=== PATIENT | male | born 1965 | race Caucasian/White ===

== ENCOUNTER 2020-09-13 15:53 | Emergency (ER) | payer OTHER ==
--- NOTE | 2020-09-13 15:59 | ED Chest Pain ---
General Stated Complaint: SOB | CHEST PAIN | HEADACHE | LEFT SIDE NUMBNESS History of Present Illness Date Seen by Provider: Sep 13, 2020 Time Seen by Provider: 15:59 Initial Comments 55-year-old male presents with headache, left-sided numbness especially in his arm and hand. Bilateral lower extremity weakness, some chest pain substernal with shortness of breath. Patient reports symptoms of been going on and off for about a week. Patient main complaint is that the chest pain was a little bit worse today than it had been. Reports that he was just driving when it happened. He feels little bit short of breath. Patient states that right now he mainly has a little bit of tingling in his left arm mainly in his hand and some very minimal substernal chest pain. Patient does not recall anything that makes it better or worse. Patient denies any fevers or chills. He has no posterior calf pain. 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 Allergies and Home Medications Allergies Coded Allergies: No Known Drug Allergies (Unverified , 09/13/20) Patient Home Medication List Home Medication List Reviewed: Yes Review of Systems Review of Systems Constitutional: No chills, No fever EENTM: No Symptoms Reported Respiratory: Denies Cough; Shortness of Air Cardiovascular: Chest Pain Gastrointestinal: Denies Abdominal Pain, Denies Nausea, Denies Vomiting Musculoskeletal: see HPI Skin: no symptoms reported Psychiatric/Neurological: See HPI, Headache, Numbness, Weakness Endocrine: No Symptoms Reported Past [id number] Hx Past Med/Social Hx: Reviewed Nursing Past Med/Soc Hx Physical Exam Vital Signs Vital Signs - First Documented 09/13/20 16:14 Temp 36.9 Pulse 81 Resp 16 B/P (MAP) 166/101 (122) Pulse Ox 95 O2 Delivery Room Air Capillary Refill : Height, Weight, BMI Height: '" Weight: lbs. oz. kg; BMI Method: General Appearance: No Apparent Distress, WD/WN HEENT: PERRL/EOMI, Pharynx Normal Neck: Full Range of Motion, Non Tender, Supple Respiratory: Lungs Clear, Normal Breath Sounds Cardiovascular: Regular Rate, Rhythm Gastrointestinal: Non Tender, Soft Extremity: Normal Capillary Refill, Normal Inspection, Normal Range of Motion Neurologic/Psychiatric: Alert, Oriented x3; No Facial Droop, No Motor Weakness, No Sensory Deficit Skin: Normal Color, Warm/Dry Progress/Results/Core Measures Results/Orders Lab Results Laboratory Tests Test 09/13/20 16:03 Range/Units White Blood Count 8.4 4.3-11.0 10^3/uL Red Blood Count 4.68 4.35-5.85 10^6/uL Hemoglobin 14.3 13.3-17.7 G/DL Hematocrit 39 L 40-54 % Mean Corpuscular Volume 84 80-99 FL Mean Corpuscular Hemoglobin 31 25-34 PG Mean Corpuscular Hemoglobin Concent 36 32-36 G/DL Red Cell Distribution Width 12.6 10.0-14.5 % Platelet Count 318 130-400 10^3/uL Mean Platelet Volume 9.6 7.4-10.4 FL Immature Granulocyte % (Auto) 0 % Neutrophils (%) (Auto) 68 42-75 % Lymphocytes (%) (Auto) 23 12-44 % Monocytes (%) (Auto) 7 0-12 % Eosinophils (%) (Auto) 1 0-10 % Basophils (%) (Auto) 1 0-10 % Neutrophils # (Auto) 5.6 1.8-7.8 X 10^3 Lymphocytes # (Auto) 2.0 1.0-4.0 X 10^3 Monocytes # (Auto) 0.6 0.0-1.0 X 10^3 Eosinophils # (Auto) 0.1 0.0-0.3 10^3/uL Basophils # (Auto) 0.1 0.0-0.1 10^3/uL Immature Granulocyte # (Auto) 0.0 0.0-0.1 10^3/uL Prothrombin Time 12.8 12.2-14.7 SEC INR Comment 0.9 0.8-1.4 Activated Partial Thromboplast Time 28 24-35 SEC Sodium Level 134 L 135-145 MMOL/L Potassium Level 3.4 L 3.6-5.0 MMOL/L Chloride Level 97 L 98-107 MMOL/L Carbon Dioxide Level 23 21-32 MMOL/L Anion Gap 14 5-14 MMOL/L Blood Urea Nitrogen 12 7-18 MG/DL Creatinine 0.82 0.60-1.30 MG/DL Estimat Glomerular Filtration Rate > 60 BUN/Creatinine Ratio 15 Glucose Level 153 H 70-105 MG/DL Calcium Level 8.9 8.5-10.1 MG/DL Corrected Calcium 8.7 8.5-10.1 MG/DL Magnesium Level 1.7 1.6-2.4 MG/DL Total Bilirubin 0.4 0.1-1.0 MG/DL Aspartate Amino Transf (AST/SGOT) 25 5-34 U/L Alanine Aminotransferase (ALT/SGPT) 29 0-55 U/L Alkaline Phosphatase 97 40-136 U/L Myoglobin < 21.0 10.0-92.0 NG/ML Troponin I < 0.30 <0.30 NG/ML Total Protein 7.1 6.4-8.2 GM/DL Albumin 4.2 3.2-4.5 GM/DL My Orders Orders - KOCH,JOSÉ MIGUEL L DO Cbc With Automated Diff (09/13/20 16:00) Magnesium (09/13/20 16:00) Chest 1 View Ap/Pa Only (09/13/20 16:00) Ekg Tracing (09/13/20 16:00) Comprehensive Metabolic Panel (09/13/20 16:00) Myoglobin Serum (09/13/20 16:00) Protime With Inr (09/13/20 16:00) Partial Thromboplastin Time (09/13/20 16:00) Monitor-Rhythm Ecg Trace Only (09/13/20 16:00) Lipid Panel (09/14/20 06:00) Ed Iv/Invasive Line Start (09/13/20 16:00) Troponin I Fs (09/13/20 16:00) Ct Head Wo-R/O Stroke (09/13/20 16:00) Aspirin Tablet (Aspirin Tablet) (09/13/20 16:25) Ketorolac Injection (Toradol Injection) (09/13/20 16:25) Vital Signs/I&O 09/13/20 16:14 Temp 36.9 Pulse 81 Resp 16 B/P (MAP) 166/101 (122) Pulse Ox 95 O2 Delivery Room Air Progress Progress Note : Progress Note Patient with EKG that does not show any acute findings, ST changes. Negative troponin, negative labs. Negative chest x-ray, negative head CT. Patient's neuro exam was essentially negative, could potentially give an NIH score of 1 out for some mild left-sided weakness. Discussed with patient that his symptoms been going on at least 5 days. That he may have a viral syndrome versus another etiology. Patient was offered admission for chest pain rule out on further ev aluation but declined. Discussed with him that he should follow-up with his primary care provider in the next day to 2 days for further outpatient evaluation where they could consider a cardiology consult, possible outpatient MRI for his left arm paresthesia. Patient stable and discharged Initial ECG Impression Date: Sep 13, 2020 Initial ECG Impression Time: 11:58 Initial ECG Rate: 82 Initial ECG Rhythm: Normal Sinus Initial ECG Impression: Nonspecific Changes Comment nsr, hr 82, no acute changes. Diagnostic Imaging Diagonstic Imaging: CT Plain Films/CT/US/NM/MRI: head Comments Date of Exam:09/13/20 CT HEAD WO-R/O STROKE EXAMINATION: CT head without contrast. TECHNIQUE: Multiple contiguous axial images were obtained through the brain without the use of intravenous contrast. All CT scans use one or more of the following dose optimizing techniques: automated exposure control, MA and/or KvP adjustment based on patient size and exam type or iterative reconstruction. HISTORY: Left sided weakness. COMPARISON: None available. FINDINGS: The ventricles and sulci are normal. No abnormal attenuation of brain parenchyma is present. No acute intracranial hemorrhage or abnormal extra-axial fluid collection is present. No hyperdense vessel. The calvarium is intact. The mastoid air cells are clear. The visualized paranasal sinuses are clear. The orbits are normal. IMPRESSION: No acute intracranial abnormality. Reviewed: Reviewed by Me, Reviewed/Discussed Diagonstic Imaging: Xray Plain Films/CT/US/NM/MRI: chest Comments no acute findings Reviewed: Reviewed by Me, Reviewed/Discussed Departure Impression Primary Impression: Chest pain Qualified Codes: R07.9 - Chest pain, unspecified Additional Impressions: Paresthesia of left arm Generalized weakness Disposition: 01 HOME, SELF-CARE Condition: Stable Departure-Patient Inst. Referrals: UNKNOWN (PCP/Family) Primary Care Physician Patient Instructions: Generalized Weakness, Paresthesia (DC), Chest Pain (DC) Add. Discharge Instructions: Follow-up with your primary care provider in 1 to 2 days for continuation of care and recheck of today's symptoms and further outpatient JOSÉ MIGUEL KOCH DO Sep 13, 2020 15:59
[2020-09-13 16:10] LABS: HEMATOCRIT 39 % (40-54); HEMOGLOBIN 14.3 G/DL (13.3-17.7); MEAN CORPUSCULAR HEMOGLOBIN 31 PG (25-34); WHITE BLOOD COUNT 8.4 10^3/uL (4.3-11.0)
[2020-09-13 16:11] LABS: BASOPHILS # (AUTO) 0.1 10^3/uL (0.0-0.1); BASOPHILS % (AUTO) 1 % (0-10); EOSINOPHILS # (AUTO) 0.1 10^3/uL (0.0-0.3); EOSINOPHILS % (AUTO) 1 % (0-10); LYMPHOCYTES % (AUTO) 23 % (12-44); MEAN CORPUSCULAR HGB CONC 36 G/DL (32-36); MEAN CORPUSCULAR VOLUME 84 FL (80-99); MEAN PLATELET VOLUME 9.6 FL (7.4-10.4); MONOCYTES # (AUTO) 0.6 X 10^3 (0.0-1.0); MONOCYTES % (AUTO) 7 % (0-12); NEUTROPHILS # (AUTO) 5.6 X 10^3 (1.8-7.8); NEUTROPHILS % (AUTO) 68 % (42-75); PLATELET COUNT 318 10^3/uL (130-400)
--- NOTE | 2020-09-13 16:21 | Diagnostic Imaging Report ---
EXAMINATION: CT head without contrast. TECHNIQUE: Multiple contiguous axial images were obtained through the brain without the use of intravenous contrast. All CT scans use one or more of the following dose optimizing techniques: automated exposure control, MA and/or KvP adjustment based on patient size and exam type or iterative reconstruction. HISTORY: Left sided weakness. COMPARISON: None available. FINDINGS: The ventricles and sulci are normal. No abnormal attenuation of brain parenchyma is present. No acute intracranial hemorrhage or abnormal extra-axial fluid collection is present. No hyperdense vessel. The calvarium is intact. The mastoid air cells are clear. The visualized paranasal sinuses are clear. The orbits are normal. IMPRESSION: No acute intracranial abnormality. Dictated by: Dictated on workstation # [id number]
[2020-09-13] MEDS ORDERED: ASPIRIN 325 MG (5 GR) TABLET PO STA (16:25)
[2020-09-13] MEDS ORDERED: KETOROLAC 30 MG/ML VIAL IVP STA (16:25)
--- NOTE | 2020-09-13 16:25 | Diagnostic Imaging Report ---
EXAMINATION: Chest 1 view. HISTORY: Left sided weakness and chest pain. COMPARISON: None available. FINDINGS: Heart size and pulmonary vasculature are normal. The lungs are clear without consolidation, pleural effusion or pneumothorax. The osseous structures are intact. IMPRESSION: No acute radiographic abnormality in the chest. Dictated by: Dictated on workstation # [id number]
[2020-09-13 16:28] LABS: ALANINE AMINOTRANSFERASE 29 U/L (0-55); ALBUMIN 4.2 GM/DL (3.2-4.5); ALKALINE PHOSPHATASE 97 U/L (40-136); BILIRUBIN,TOTAL 0.4 MG/DL (0.1-1.0); BUN/CREATININE RATIO 15; CALCIUM 8.9 MG/DL (8.5-10.1); CARBON DIOXIDE 23 MMOL/L (21-32); CHLORIDE 97 MMOL/L (98-107); CREATININE SERUM 0.82 MG/DL (0.60-1.30); GFR ESTIMATED > 60; GLUCOSE 153 MG/DL (70-105); MAGNESIUM 1.7 MG/DL (1.6-2.4); POTASSIUM 3.4 MMOL/L (3.6-5.0); SODIUM 134 MMOL/L (135-145); TOTAL PROTEIN 7.1 GM/DL (6.4-8.2)
[2020-09-13 16:29] LABS: INR 0.9 (0.8-1.4); PROTHROMBIN TIME PATIENT 12.8 SEC (12.2-14.7)
[2020-09-13 17:07] VITALS: BP 154/92
== END 2020-09-13 17:07 | disposition home or self-care (01) ==
LOC: ER FS 15:57
DX: R07.89 Other chest pain (principal); R53.1 Weakness; R20.2 Paresthesia of skin
CPT/HCPCS: 36415; 70450; 71045; 80053; 83735; 83874; 84484; 85025; 85610; 85730; 93005; 93041